=== PATIENT | male | born 1960 | race Caucasian/White ===

== ENCOUNTER 2020-04-09 10:10 | Outpatient (CLI) | payer MEDICAID, SELFPAY ==
--- NOTE | 2020-04-09 10:16 | MR_ITS ---
WS: [id number] MRI RIGHT SHOULDER NONCONTRAST TECHNIQUE: Sagittal T2, coronal T1, T2 and proton density imaging. Axial gradient PDE imaging. CLINICAL INFORMATION: SHOULDER WEAKNESS, RIGHT COMPARISON: None. FINDINGS: Prior extensive postoperative changes involving the rotator cuff with rotator cuff anchors. This degr ades images due to susceptibility artifact. AC joint appears normal. Narrowing of the subacromial spa ce. Chronic narrowing and thinning of the rotator cuff. Prior surgical repair of the supraspinatus wh ich appears foreshortened and atrophic. Infraspinatus appears intact and also previously repaired. Normal visualized teres minor. Subscapular is tendon appears atrophic with a small remnant. Biceps tendon is not visualized in the bicipital андрей ove due to artifact. Degenerative fraying of the glenoid labrum. Normal bone marrow signal involving the coracoid and glenoid labrum. MR/MR shoulder RT wo con* [id number] IMPRESSION: 1. Limited examination due to extensive beam hardening artifact from prior rot ator cuff repair. 2. Evidence of prior supraspinatus and infraspinatus repair. 3. Marked atrophy and thinning of the previously repaired supraspinatus. No de finite evidence of new tear. 4. Supraspinatus is present repaired and Appears intact. 5. Normal teres minor. 6. Tiny amount of residual subscapularis tendon visualized. 7. Biceps tendon is not visualized in the bicipital groove likely chronically torn. 8. Marked chronic narrowing of the subacromial space.
== END 2020-04-09 10:11 | disposition home or self-care (01) ==
LOC: RADWPI 10:15
PROVIDERS: Family Provider Nurse Practitioner Family; PCP Nurse Practitioner Family; Visit Provider Nurse Practitioner Family
DX: M25.511 Pain in right shoulder (principal); M62.81 Muscle weakness (generalized)
CPT/HCPCS: 73221

== ENCOUNTER 2021-09-23 11:21 | Outpatient (CLI) | payer MEDICAID, SELFPAY ==
[2021-09-23 12:46] LABS: Basophils # 0.1 10^3/uL (0.0-0.1); Basophils % 0.6 %; Eosinophils # 0.3 10^3/uL (0.0-0.8); Eosinophils % 3.3 %; Hematocrit 33.1 % (42.0-52.0); Hemoglobin 10.9 g/dL (11.7-16.6); Lymphocytes # 2.3 10^3/uL (0.8-4.8); Lymphocytes % 23.8 %; Mean Corpuscular HGB Conc 32.9 g/dL (30.0-36.0); Mean Corpuscular Hemoglobin 21.3 pg (28.0-34.0); Mean Corpuscular Volume 64.8 fl (80-94); Monocytes # 1.1 10^3/uL (0.2-0.9); Neutrophils # 5.98 10^3/uL (1.8-7.7); Nucleated Red Blood Cells % 0 %; Platelet Count 290 10^3/cmm (130-400); Red Blood Count 5.11 10^6/uL (4.1-5.3); Red Cell Distribution Width 16.3 % (12.1-15.1); Reticulocyte % 1.6 % (0.5-2.0); White Blood Count 9.8 10^3/uL (4.0-10.0)
[2021-09-23 13:00] LABS: Ferritin 190 ng/mL (30-400); Iron 90 ug/dL (59-158); Lactate Dehydrogenase 201 U/L (135-225); Percent Saturation 30.8 % (20-50); Total Bilirubin 1.6 mg/dL (0.15-1.2); Total Iron Binding Capacity 292 mcg/dl; Unsaturated Iron Binding 202 ug/dL (112-347)
[2021-09-23 13:09] LABS: LAB Peripheral Smear Sent for Review
--- NOTE | 2021-09-23 17:51 | ONC CON_ITS ---
Dr. Mar New Patient Note Patient: Gerardo Jamil Unit #: [id number]: 1960 Dicatated By: Crow Mar M.D.Date of Visit: Sep 23, 2021 Onc MED New Patient/Consult Referring Physician: Mona Ball Chief Complaint: Thalassemia trait. History of Present Illness: This is a 60-year-old man with suspected thalassemia trait. He has a history of hepatitis C associated with previous substance abuse. It has been treated. He has some chronic anxiety and depression. I am asked to see him in regard to thalassemia trait. He indicates that he was first told that he had it sometime during adolescence. He was seen for a follow-up visit at the [facility] on 08/08/2021. His laboratory studies at that time included CBC which showed normal hemoglobin at 13.5 g with hematocrit 44.1%. He red blood cell count was elevated at 6,640,000. The red cell indices were hypochromic/microcytic with MCV 66 and MCH 20. The white blood cell count was 8100 and the platelet count was 348,000. Comprehensive metabolic profile showed normal renal function with BUN 15 and creatinine 0.80 mg/dL. Bilirubin was borderline high at 1.2 mg/dL, but with normal liver enzymes. His B12 level was normal at 533 pg/mL and the folate level was normal at 8.1 ng/mL. TSH was normal at 2.820 ???IU/mL. He complains that he feels really fatigued. 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 ECOG score is 1. His appetite cycles and his weight fluctuates. He does not have fever or night sweats. He sometimes feels chilled. He reports having sinus congestion and dry mouth and throat. He does not complain of cough. He sometimes has shortness of breath. He sometimes has muscle spasms in the chest area. He has indigestion a lot. He has no other GI complaints. Reports having urinary frequency and nocturia. He has pain in the right shoulder area and he has chronic back pain. He also has soreness in his hands and in his ankles and feet. He has constant paresthesias/burning sensation in his legs. He has anxiety attacks and depression. Past Medical History: Mr. Denton medical history consists of anxiety, depression, history of substance abuse, and history of treated hepatitis C. Past Surgical History: Mr. Denton surgical/procedural history consists of appendectomy, bilateral rotator cuff repair, cholecystectomy, repair of torn bicep, and tonsillectomy. Medications: DULoxetine HCl 30 mg (of 30 mg) Capsule Delayed Release Particles Oral b.i.d. Allergies: No Known Allergies. Social History: Mr. Jamil is . He has never smoked cigarettes, but he has been smoking marijuana since age 12. He was incarcerated for 26 years, having been released in 1998. He had substance abuse, including IV drug use while he was in residential. Family History: Father is still living in his 70s. Mother had lupus and MS. According to the patient, she from a reaction to a surgical anesthetic. He has 2 half-brothers with his mother and 2 half-sisters with his father. He has no children. He is not certain if anyone else in the family has the thalassemia trait or anemia. He is also uncertain of his ethnic ancestry. 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 His appetite cycles and his weight fluctuates. He does not have fever or night sweats. He sometimes feels chilled. ECOG score is 1, Eyes - His vision is a little bit worse, ENMT - No hearing loss or tinnitus. He has sinus congestion. He has dry mouth and throat. No difficulty swallowing, Hematologic/Lymphatic - No abnormal bruising or bleeding, Respiratory - He has some shortness of breath. He does not complain of cough. No pleuritic pain or hemoptysis, Cardiovascular - He sometimes has muscle spasms in the chest or abdominal area. He has no angina pain. No palpitations, Gastrointestinal - No nausea or vomiting. He has indigestion a lot. No diarrhea or constipation. No blood in the stool or black stools, Genitourinary (M) - No dysuria or hematuria. He has urinary frequency and nocturia. No urgency or incontinence, Musculoskeletal - He has pain in the right shoulder area and he has low back pain. He also has soreness in his hands and his ankles and feet, Integumentary - No skin rash or other skin changes, Neurologic - No headache. He sometimes has dizziness. He has constant paresthesia/burning sensation in his legs, Psychiatric - He has anxiety and depression. He has difficulty sleeping. Vital Signs: Performed on Sep 23, 2021 11:42: 8, 4, 0.00, 0.00 sq.m, 98 %, 94 /min, 18 /min, 146/81 mm(hg) (HIGH), 98.2 F (LOW), and 203.6 lbs (HIGH). Physical Examination: Constitutional - He appears chronically ill, Eyes - Sclerae nonicteric. Conjunctivae clear, ENMT - No lesions noted in the oral cavity, Neck - No mass or thyromegaly, Hematologic/Lymphatic - No cervical, clavicular, or axillary adenopathy, Respiratory - Lungs sound clear with good air movement bilaterally, Cardiovascular - Heart rhythm is regular. There is no murmur, gallop, or rub noted, Abdomen - Soft and non-tender. Liver and spleen are not enlarged. There is no abdominal mass or ascites noted and there is no inguinal adenopathy, Back/Spine - No spine or CVA tenderness noted, Extremities - No edema. Pedal pulses are palpable bilaterally, Integumentary - No rashes. No suspicious skin lesions noted, Neurologic - No focal neurologic deficits noted. Lab/Imaging: His CBC shows hemoglobin 10.9 g with hematocrit 33.1%. The red blood cell count is 5,110,000. The red cell indices are hypochromic/microcytic with MCV 64 and MCH 21. White blood cell count is 9800 and platelet count is 290,000. The uncorrected reticulocyte count is 1.6%. The total bilirubin is 1.6 mg/dL with direct bilirubin 0.30 mg/dL and calculated indirect bilirubin 1.30 mg/dL. LDH is normal at 201 U/L. The serum iron studies show transferrin saturation 30.8% and the ferritin is normal at 190 ng/mL. The blood smear shows hypochromia and RBC microcytosis, as expected. There are numerous target cells and there is rare basophilic stippling. Problem List: 1. Patient with CBC findings which are consistent with thalassemia trait, presumably beta thalassemia trait. He is not anemic. 2. Treated hepatitis C. 3. History of substance abuse. 4. Anxiety and depression. Problems Addressed with this Encounter and Plan: Patient with CBC findings which are consistent with thalassemia trait, presumably beta thalassemia trait. His current laboratory studies do show mild anemia, which is expected. His serum iron studies show normal transferrin saturation and his ferritin level also is normal. In addition, he does not appear to be hemolyzing. As such, it is uncertain to what extent this may be contributing to his fatigue, but with just mild anemia there is no treatment indicated, and at this point I do not feel that any further evaluation is indicated. I can see him again as needed if there is significant worsening of the anemia. Signed By: Crow Mar M.D. <<Signature on File>>
== END 2021-09-23 11:22 | disposition home or self-care (01) ==
LOC: ONCMED 11:24
PROVIDERS: PCP Nurse Practitioner Family; Visit Provider Internal Medicine Medical Oncology
DX: D56.3 Thalassemia minor (principal); F41.9 Anxiety disorder, unspecified; F32.9 Major depressive disorder, single episode, unspecified; F19.11 Other psychoactive substance abuse, in remission; Z86.19 Personal history of other infectious and parasitic diseases; Z79.899 Other long term (current) drug therapy
CPT/HCPCS: 36415; 82247; 82248; 82728; 83540; 83550; 83615; 85025; 85045; 99204

== ENCOUNTER 2023-05-21 16:19 | Emergency (ER) | payer MEDICAID, SELFPAY ==
[2023-05-21 16:22] VITALS: BP 161/90; PULSE 97; RESP 17; TEMP 36.4; O2SAT 98; BMI 29.0
--- NOTE | 2023-05-21 16:34 | CTR_ITS ---
PROCEDURE INFORMATION: Exam: CT Head Without Contrast Exam date and time: 05/21/2023 5:23 PM Age: 62 years old Clinical indication: Injury or trauma; Fall; Blunt trauma (contusions or hematomas); Without loss of consciousness TECHNIQUE: Imaging protocol: Computed tomography of the head without contrast. Radiation optimization: All CT scans at this facility use at least one of these dose optimization techniques: automated exposure control; mA and/or kV adjustment per patient size (includes targeted exams where dose is matched to clinical indication); or iterative reconstruction. REPORTING DATA: Count of CT and Cardiac NM exams in prior 12 months: This patient has received 0 known CTs and 0 known cardiac nuclear medicine studies in the 12 months prior to the current study. COMPARISON: No relevant prior studies available. RADIATION DOSE METRICS: Total DLP (mGy-cm): 1137.8 FINDINGS: Brain: No hemorrhage. No edema. Mild diffuse cerebral atrophy. No significant white matter disease. No mass effect. Cerebral ventricles: No ventriculomegaly. Paranasal sinuses: Visualized sinuses are unremarkable. No fluid levels. Mastoid air cells: Visualized mastoid air cells are well aerated. Bones/joints: Unremarkable. No acute fracture. Soft tissues: Unremarkable. CT/CT head wo con* [id number] IMPRESSION: No acute intracranial abnormality.
--- NOTE | 2023-05-21 16:34 | CTR_ITS ---
PROCEDURE INFORMATION: Exam: CT Cervical Spine Without Contrast Exam date and time: 05/21/2023 5:23 PM Age: 62 years old Clinical indication: Injury or trauma; Fall; Blunt trauma TECHNIQUE: Imaging protocol: Computed tomography of the cervical spine without contrast. Radiation optimization: All CT scans at this facility use at least one of these dose optimization techniques: automated exposure control; mA and/or kV adjustment per patient size (includes targeted exams where dose is matched to clinical indication); or iterative reconstruction. REPORTING DATA: Count of CT and Cardiac NM exams in prior 12 months: This patient has received 0 known CTs and 0 known cardiac nuclear medicine studies in the 12 months prior to the current study. COMPARISON: MR shoulder RT wo con* [id number] 04/09/2020 11:01 AM RADIATION DOSE METRICS: Total DLP (mGy-cm): 1675.43 FINDINGS: Bones/joints: Osseous ankylosis of the left atlanto occipital joint space. No acute fracture. Normal alignment. No severe spinal canal stenosis. Lungs: Lung apices are normal. Soft tissues: Unremarkable. CT/CT cervical spin wo con* [id number] IMPRESSION: No acute findings.
--- NOTE | 2023-05-21 16:56 | W.ED.FALL ---
HPI - Fall General: Chief Complaint: Fall Stated Complaint: fell / hit head Time Seen by Provider: 05/21/23 16:25 Source: patient Mode of arrival: ambulatory Limitations: no limitations History of Present Illness: 62-year-old male states that he tripped and fell a couple hours ago states he hit his head he does have a superficial laceration to the top of his head states he also has neck pain. Patient states the pain is 4 out of 10 he did have a loss of consciousness patient ambulated in here. Denies any other injuries Associated symptoms-after fall: Reports headache(s) and neck pain; Denies abdominal pain or chest pain Review of Systems Const: Denies: fever(s) or chills Eyes: Denies: blurry vision or eye discomfort ENMT: Denies: throat pain or dental pain Card: Denies: chest pain Resp: Denies: dyspnea GI: Denies: abdominal pain, nausea, vomiting or diarrhea Musc: Reports: neck pain; Denies: back pain Skin/Breast: Denies: rash Neuro: Reports: headache(s) Physical Exam Const: COMMON NORMALS: no acute distress, patient oriented x3 and healthy appearing HENMT: COMMON NORMALS: normocephalic; head/scalp not atraumatic (2 cm superficial laceration to crown of the head) HEAD & SCALP: normocephalic; not atraumatic (2 cm superficial laceration to crown of the head) Eye: COMMON NORMALS: Equal, round and reactive pupils present PUPIL: Yes Equal, round and reactive pupils present Neck/C-Spine: OTHER: In c-collar complaining of pain Chest: COMMONS NORMALS: normal inspection of the chest and normal palpation of entire chest wall Resp: COMMON NORMALS: normal respiratory effort, No retractions, No use of accessory muscles and clear to auscultation bilaterally AUSCULTATION: clear to auscultation bilaterally Cardio: COMMON NORMALS: regular rate, regular rhythm and No murmurs present (Cardio) RATE: regular rate RHYTHM: regular rhythm GI: COMMON NORMALS: Normal to inspection, nondistended, normoactive bowel sounds present, Soft to palpation, non-tender and no masses PALPATION: Yes Soft to palpation Extremity: COMMON NORMALS: normal to inspection and full ROM Neuro: COMMON NORMALS: patient oriented x3, moves all extremities and no focal motor deficits Psych: COMMON NORMALS: mental status grossly normal, Normal thought process present and cooperative THOUGHT PROCESS: Normal thought process present Skin: COMMON NORMALS: no rashes or lesions noted and no wounds GENERAL SKIN EXAM: no rashes or lesions noted Procedures Laceration Laceration 1: Site: scalp Size (cm): 2 Description: linear Depth: simple, single layer Pre-repair: irrigated extensively Size (cm): other (dermabond) Course Vital Signs: Vital signs: Vital Signs Temperature 97.5 F L 05/21/23 16:22 Pulse Rate 90 05/21/23 18:05 Respiratory Rate 17 05/21/23 16:22 Blood Pressure 137/82 05/21/23 18:05 Pulse Oximetry 99 05/21/23 18:05 Oxygen Delivery Me thod Room Air 05/21/23 18:05 MDM - Fall Medical Decision Making Patient presents with a head laceration head CT C-spine are negative he is otherwise well-appearing here did Dermabond the laceration as it was superficial nature. Medical Records I reviewed the patient's medical records. Lab Data I reviewed the patient's lab results. Radiology Impressions Cervical Spine CT 05/21/23 16:34 IMPRESSION: No acute findings. Head CT 05/21/23 16:34 IMPRESSION: No acute intracranial abnormality. Discharge Plan Discharge Patient Disposition: Home Clinical Impression: Head injury, Fall, Laceration Condition: Stable Prescriptions: No Action hydroxyzine HCl 25 mg tablet 25 mg PO TID PRN bupropion HCl 100 mg tablet 100 mg PO BID trazodone 50 mg tablet 25 mg PO DAILY Discharge Orders: Discharge ED (Routine); Ordered 05/21/23 Ordered By: Candace Bullock Referrals: Anny Gardner FNP [Primary Care Provider] - 1-3 days Discharge Diet: Advance as tolerated Discharge Activity: Resume usual activity Patient Instructions: Laceration (ED), Head Injury (ED) Coding Level of Care Code ED Residential [employer] for [employer]
[2023-05-21 18:05] VITALS: BP 137/82; PULSE 90; O2SAT 99
== END 2023-05-21 18:13 | disposition home or self-care (01) ==
PROVIDERS: Emergency Provider Emergency Medicine; PCP Nurse Practitioner Family
DX: S01.01XA Laceration without foreign body of scalp, initial encounter (principal); W01.0XXA Fall on same level from slipping, tripping and stumbling without subsequent striking against object, initial encounter; S09.90XA Unspecified injury of head, initial encounter
CPT/HCPCS: 12001; 70450; 72125; 99284

== ENCOUNTER 2023-08-19 08:45 | Emergency (ER) | payer MEDICAID, SELFPAY ==
[2023-08-19 08:46] VITALS: BP 157/97; PULSE 78; TEMP 36.4; O2SAT 100; BMI 28.7
--- NOTE | 2023-08-19 08:46 | XRR_ITS ---
PROCEDURE INFORMATION: Exam: XR Chest Exam date and time: 08/19/2023 8:58 AM Age: 62 years old Clinical indication: Cough and dyspnea; Additional info: Dyspnea/cough TECHNIQUE: Imaging protocol: Radiologic exam of the chest. Views: 1 view. COMPARISON: CT cervical spin wo con* [id number] 05/21/2023 5:23 PM FINDINGS: Lungs: There is no consolidation. Pleural spaces: There is no pleural effusion or pneumothorax. Heart/Mediastinum: Cardiomediastinal contours are unremarkable. Bones/joints: There is moderate degenerative disease at both shoulders. XR/XR chest 1V portable [id number] IMPRESSION: No acute findings.
--- NOTE | 2023-08-19 08:46 | ECG_ITS ---
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 Measurements Intervals [place] Rate: 84 P: 55 DE: 159 QRS: 60 QRSD: 88 T: 76 QT: 367 QTc: 436 Interpretive Statements SINUS RHYTHM No previous ECG available for comparison Electronically Signed On 08-19-2023 9:25:27 CDT by Adalid Barajas M.D. [email or web address]
--- NOTE | 2023-08-19 08:48 | W.ED.GENADLT ---
HPI - General Adult General: Chief complaint: Abdominal Pain Stated complaint: sob, n/v/d Time Seen by Provider: 08/19/23 08:46 Source: patient Mode of arrival: EMS History of Present Illness: 62-year-old male presents emergency room complaining of upper abdominal pain nausea vomiting and diarrhea. He denies any hematochezia melena hematemesis cough cramps denies chest pain or shortness of breath or cough no dysuria urgency or frequency no fever sweats or chills. Patient has mild mildly aggressive vomiting and diarrhea vomited multiple times in the room he had an episode of diarrhea when they are going to take him off the ambulance cot he leaned against the wall and sat on the floor and had an episode of diarrhea and is closing. Patient States he uses medical marijuana a lot Onset (ago): minute(s) Location: abdomen Severity: severe Quality: aching and constant Pain Consistency: constant Relieving factors: none Exacerbating factors: none Associated symptoms: Reports decreased appetite, nausea and vomiting; Deny chest pain, confusion, cough, diaphoresis, dyspnea, fevers/chills, headache(s), malaise, rash, palpitations, seizures, short of breath, syncope or weakness Review of Systems Const: Denies: fever(s), chills, malaise or diaphoresis Card: Denies: chest pain, palpitations or syncope Resp: Denies: dyspnea GI: Reports: abdominal pain, nausea, vomiting and diarrhea : Denies: dysuria, urinary frequency or urinary urgency Musc: Denies: neck pain or back pain Skin/Breast: Denies: rash Neuro: Denies: headache(s) or confusion Physical Exam Const: GENERAL APPEARANCE: cooperative and comfortable ORIENTATION/CONSCIOUSNESS: Yes awake, Yes oriented to person, Yes oriented to place and Yes oriented to time HENMT: COMMON NORMALS: normocephalic, atraumatic and hearing grossly normal bilaterally HEAD & SCALP: normocephalic and atraumatic Resp: COMMON NORMALS: normal respiratory effort, No retractions, No use of accessory muscles and clear to auscultation bilaterally AUSCULTATION: clear to auscultation bilaterally Cardio: COMMON NORMALS: regular rate, regular rhythm and No murmurs present (Cardio) RATE: regular rate RHYTHM: regular rhythm GI: COMMON NORMALS: No hepatosplenomegaly present AUSCULTATION: Yes normoactive bowel sounds PALPATION: Yes Tenderness to palpation present (GI) (Diffuse), No Guarding due to palpation present (GI) and Yes No hepatosplenomegaly present Extremity: COMMON NORMALS: normal to inspection, capillary refill normal, no clubbing, cyanosis or edema, no calf tenderness and no pedal edema Neuro: SENSORIUM/ORIENTATION: Yes oriented to person, Yes oriented to place and Yes oriented to time Skin: COMMON NORMALS: no rashes or lesions noted GENERAL SKIN EXAM: no rashes or lesions noted Course Vital Signs: Vital signs: Vital Signs Temperature 97.6 F 08/19/23 08:46 Pulse Rate 78 08/19/23 08:46 Blood Pressure 157/97 08/19/23 08:46 Pulse Oximetry 100 08/19/23 08:46 Oxygen Delivery Me thod Nasal Cannula 08/19/23 08:46 Oxygen Flow Rate 3 08/19/23 08:46 MDM - General Adult Medical Decision Making Patient improved after Ativan and Haldol. CT of the abdomen negative. Hemoglobin normal repeat abdominal exam is benign. Vital signs stable he did require some oxygenation after receiving Ativan and Haldol and he was sleeping supine he would desat a little bit when he woke up it would resolve immediately. We will discharge patient home discharge home ondansetron to use as needed follow-up with primary care as needed encouraged to decrease or abstain from the use of marijuana products Medical Records I reviewed the patient's medical records. Lab Data I reviewed the patient's lab results. 08/19/23 08:58 08/19/23 08:58 Radiology Impressions Chest X-Ray 08/19/23 08:46 IMPRESSION: No acute findings. Laboratory Results WBC 12.03 10^3/uL (3.29-11.43) H 08/19/23 08:58 RBC 7.32 10^6/uL (3.85-5.65) H 08/19/23 08:58 Hgb 15.00 g/dL (11.27-16.99) 08/19/23 08:58 Hct 46.8 % (37-53) 08/19/23 08:58 MCV 63.9 fl (82-101) L 08/19/23 08:58 MCH 20.5 pg (27-33) L 08/19/23 08:58 MCHC 32.1 g/dL (30-55) 08/19/23 08:58 RDW 17.7 % (12.1-15.1) H 08/19/23 08:58 Plt Count 416 10^3/cmm (157-399) H 08/19/23 08:58 MPV 9.0 fL (7.4-10.4) 08/19/23 08:58 Neut % (Auto) 75.0 % 08/19/23 08:58 Lymph % (Auto) 14.3 % 08/19/23 08:58 [place] % (Auto) 7.5 % 08/19/23 08:58 Eos % (Auto) 2.5 % 08/19/23 08:58 Baso % (Auto) 0.3 % 08/19/23 08:58 Neut # (Auto) 9.02 10^3/uL (1.8-7.7) H 08/19/23 08:58 Lymph # (Auto) 1.7 10^3/uL (0.8-4.8) 08/19/23 08:58 [place] # (Auto) 0.9 10^3/uL (0.2-0.9) 08/19/23 08:58 Eos # (Auto) 0.3 10^3/uL (0.0-0.8) 08/19/23 08:58 Baso # (Auto) 0.0 10^3/uL (0.0-0.1) 08/19/23 08:58 Nucleated RBC % (auto) 0 % 08/19/23 08:58 Nucleated RBCs # 0.0 /100WBC 08/19/23 08:58 Sodium 134 mmol/L (136-145) L 08/19/23 08:58 Potassium 4.1 mmol/L (3.5-5.1) 08/19/23 08:58 Chloride 98 mmol/L (98-107) 08/19/23 08:58 Carbon Dioxide 22 mmol/L (22-29) 08/19/23 08:58 Anion Gap 18.1 (5-19) 08/19/23 08:58 BUN 23 mg/dL (8-23) 08/19/23 08:58 Creatinine 0.9 mg/dL (0.7-1.2) 08/19/23 08:58 GFR Calculation 85.2 mL/min (90-130) L 08/19/23 08:58 Glucose 107 mg/dL (65-115) 08/19/23 08:58 Calculated Osmolality 282 mOsm/kg (285-295) L 08/19/23 08:58 Calcium 10.5 mg/dL (8.5-10.5) 08/19/23 08:58 Total Bilirubin 1.4 mg/dL (0.15-1.2) H 08/19/23 08:58 AST 25 U/L (0-40) 08/19/23 08:58 ALT 25 U/L (0-41) 08/19/23 08:58 Alkaline Phosphatase 119 U/L (40-130) 08/19/23 08:58 Total Protein 8.5 g/dL (6.6-8.7) 08/19/23 08:58 Albumin 4.7 g/dL (3.5-5.2) 08/19/23 08:58 Globulin 3.8 g/dL (1.3-4.6) 08/19/23 08:58 Lipase 30 U/L (13-60) 08/19/23 08:58 Urine Color Yellow (Yellow) 08/19/23 11:50 Urine Appearance Clear (CLEAR) 08/19/23 11:50 Urine pH 5 (5-7) 08/19/23 11:50 Ur Specific [place] 1.010 (1.005-1.030) 08/19/23 11:50 Urine Protein Neg (Negative) 08/19/23 11:50 Urine Glucose (UA) Norm (Normal) 08/19/23 11:50 Urine Ketones Negative (Negative) 08/19/23 11:50 Urine Blood Neg (Negative) 08/19/23 11:50 Urine Nitrate Negative (Negative) 08/19/23 11:50 Urine Bilirubin Neg (Negative) 08/19/23 11:50 Urine Urobilinogen Norm mg/dL (Negative) 08/19/23 11:50 Ur Leukocyte Esterase Negative (Negative) 08/19/23 11:50 Ethyl Alcohol < 10 mg/dL (0-10) 08/19/23 08:58 All radiology interpretation(s) finalized by discharge Discharge Plan Discharge Patient Disposition: Home Clinical Impression: Cannabinoid hyperemesis syndrome Condition: Stable Prescriptions: New ondansetron HCl 4 mg tablet 4 mg PO Q6H PRN (Reason: nausea and vomiting) Qty: 20 0RF Discharge Orders: Discharge ED (Routine); Ordered 08/19/23 Ordered By: Ravi Willams Referrals: Anny Gardner FNP [Primary Care Provider] - Discharge Diet: Clear Liquid Discharge Activity: Increase activity as tolerated Patient Instructions: Opioid Safety, Pain Management Activity Restrictions/Additional Instructions: Thank you for choosing [facility] for your healthcare needs today. Please realize this is an emergency room and that we are providing you with a medical screening exam and this may not be complete and all inclusive of all the testing and or work up that you may need to determine your ailment or severity of your illness. It is very important that you follow up as instructed or that you return to the Emergency Department should you have concerns or if your condition changes or worsens in any way. You are seen today for persistent nausea and vomiting. CT of your abdomen was unremarkable with exception of what appears to be some mild gastric paretic type changes (retained fluid in the stomach. Suspect this is caused by chronic use of marijuana products. You can use the ondansetron as needed. Recommend significantly decreasing or abstaining from the use of marijuana follow-up with your primary care doctor as needed return if you have further problems. 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
[2023-08-19 09:06] LABS: Basophils % 0.3 %; Eosinophils # 0.3 10^3/uL (0.0-0.8); Eosinophils % 2.5 %; Hematocrit 46.8 % (37-53); Lymphocytes # 1.7 10^3/uL (0.8-4.8); Lymphocytes % 14.3 %; Mean Corpuscular HGB Conc 32.1 g/dL (30-55); Mean Corpuscular Hemoglobin 20.5 pg (27-33); Mean Corpuscular Volume 63.9 fl (82-101); Monocytes # 0.9 10^3/uL (0.2-0.9); Monocytes % 7.5 %; Neutrophils # 9.02 10^3/uL (1.8-7.7); Nucleated Red Blood Cells % 0 %; Platelet Count 416 10^3/cmm (157-399); Red Blood Count 7.32 10^6/uL (3.85-5.65); Red Cell Distribution Width 17.7 % (12.1-15.1); White Blood Count 12.03 10^3/uL (3.29-11.43)
[2023-08-19] MEDS: sodium chloride 0.9% 1,000 ML 999 ML IV (09:20)
[2023-08-19] MEDS: ondansetron 2 mg/ML SDV 2 mL 4 MG IVP (09:20)
[2023-08-19 09:25] LABS: Alanine Aminotransferase 25 U/L (0-41); Albumin Level 4.7 g/dL (3.5-5.2); Alcohol Level < 10 mg/dL (0-10); Alkaline Phosphatase 119 U/L (40-130); Aspartate Amino Transferase 25 U/L (0-40); Blood Urea Nitrogen 23 mg/dL (8-23); Calcium 10.5 mg/dL (8.5-10.5); Carbon Dioxide 22 mmol/L (22-29); Chloride 98 mmol/L (98-107); Globulin 3.8 g/dL (1.3-4.6); Glomerular Filtration Rate 85.2 mL/min (90-130); Glucose 107 mg/dL (65-115); Lipase 30 U/L (13-60); Osmolality Calculated 282 mOsm/kg (285-295); Sodium 134 mmol/L (136-145); Total Bilirubin 1.4 mg/dL (0.15-1.2); Total Protein 8.5 g/dL (6.6-8.7)
[2023-08-19 09:26] LABS: Anion Gap 18.1 (5-19); Potassium 4.1 mmol/L (3.5-5.1)
--- NOTE | 2023-08-19 09:32 | CT_ITS ---
WS: [id number] CT ABDOMEN PELVIS TECHNIQUE: Noncontrast CT of the abdomen and pelvis with coronal and sagittal reformatted images. CLINICAL INFORMATION: Abdominal pain COMPARISON: None. DLP: 727.[address] scans at [facility] use at least one of these dose optimization techniques: automated e xposure control; mA and/or kV adjustment per patient size (includes targeted exams where dose is matc hed to clinical indication); or iterative reconstruction. FINDINGS: Normal noncontrast liver. Prior cholecystectomy. Noncontrast spleen is normal. Normal GE junction. Sl ight bibasilar atelectasis. Noncontrast pancreas is normal. Normal adrenal glands. Normal caliber abdominal aorta. No hydronephrosis in either kidney. Sigmoid diverticulosis. No eviden ce of acute diverticulitis. Distended stomach with air-fluid level. No high-grade obstruction. Scatte red air and fluid in normal caliber small bowel. Chronic anterior wedging in the lower thoracic spine Grade 1 anterolisthesis L4 on L5. Moderate central canal stenosis L4-5. IMPRESSION: 1. No acute findings in the abdomen or pelvis. 2. Prior cholecystectomy. 3. Air-fluid level in the stomach with mild distention. 4. Scattered air and fluid in normal caliber small bowel. No evidence of high-grade obstruction. 5. Sigmoid diverticulosis. No evidence of acute radiculitis.
[2023-08-19] MEDS: LORazepam 2 mg/mL INJ 1 mL IVP (09:42)
[2023-08-19] MEDS: haloperidol inj 5 mg/mL INJ 1 mL 2.5 MG IVP (09:42)
[2023-08-19 12:00] LABS: Add Urine Microscopic? NO; Charge for UA Resulting for Rev
[2023-08-19 12:08] LABS: Bilirubin Urine Neg (Negative); Blood Urine Neg (Negative); Glucose Urine UA Norm (Normal); Ketones Urine Negative (Negative); Leukocyte Esterase Urine Negative (Negative); Nitrate Urine Negative (Negative); Protein Urine Neg (Negative); Urine Appearance Clear (CLEAR); Urine Color Yellow (Yellow); Urobilinogen Urine Norm (Negative); pH Urine 5 (5-7)
== END 2023-08-19 13:08 | disposition home or self-care (01) ==
PROVIDERS: Emergency Provider Family Medicine; PCP Nurse Practitioner Family
DX: R11.2 Nausea with vomiting, unspecified (principal); F12.90 Cannabis use, unspecified, uncomplicated
CPT/HCPCS: 71045; 74176; 80053; 80307; 81003; 83690; 85025; 93005; 96361; 96374; 96375; 99285; J1630; J2060; J2405; J7030

== ENCOUNTER 2025-04-09 11:16 | Emergency (ER) | payer MEDICAID, SELFPAY ==
[2025-04-09 11:22] VITALS: BP 155/101; PULSE 87; RESP 20; TEMP 36.3; O2SAT 98; BMI 24.7
--- NOTE | 2025-04-09 11:40 | ED.C_ITS ---
HPI - Psych 2 General: Chief Complaint: Psychiatric Symptoms Stated Complaint: mhe Time Seen by Provider: 04/09/25 11:31 Source: patient Mode of arrival: ambulatory Limitations: no limitations History of Present Illness: 64-year-old male who has a history of de pression states he supposed be on meds but is not currently on them states that he feels like he is at his wits end states that he feels like if he does not get any help that he is going to kill himself or harm someone he states he has been having suicidal thoughts denies any specific plans denies any worse improving factors Associated symptoms: Reports depression and suicidal ideation Related Data Previous Rx's ?Medication ?Instructions ?Recorded ondansetron HCl 4 mg tablet 4 mg PO Q6H PRN nausea and 08/19/23 vomiting #20 tabs Allergies Allergy/AdvReac Type Severity Reaction Status Date / Time codeine AdvReac ADR-Gastrointestinal Verified 04/09/25 11:27 Upset Review of Systems 2 Const: Denies: fever(s), chills, body aches or change in appetite ENMT: Denies: throat pain or dental pain Card: Denies: chest pain Resp: Denies: dyspnea GI: Denies: abdominal pain, nausea, vomiting or diarrhea : Denies: dysuria Musc: Denies: neck pain or back pain Skin/Breast: Denies: rash Neuro: Denies: headache(s) Psych: Reports: depression and suicidal ideation Physical Exam 2 Const: COMMON NORMALS: no acute distress, patient oriented x3 and healthy appearing HENMT: COMMON NORMALS: normocephalic and atraumatic HEAD & SCALP: n ormocephalic and atraumatic Eye: COMMON NORMALS: conjunctivae normal CONJUNCTIVA: Yes conjunctivae normal Neck/C-Spine: COMMON NORMALS: full ROM and supple Chest: COMMONS NORMALS: normal inspection of the chest Resp: COMMON NORMALS: normal respiratory effort Cardio: COMMON NORMALS: regular rate, regular rhythm and No murmurs present (Cardio) RATE: regular rate RHYTHM: regular rhythm Extremity: COMMON NORMALS: normal to inspection and full ROM Neuro: COMMON NORMALS: patient oriented x3, moves all extremities and no focal motor deficits Psych: COMMON NORMALS: mental status grossly normal, Normal thought process present and cooperative MOOD & AFFECT: Yes depressed mood THOUGHT PROCESS: Normal thought process present THOUGHT CONTENT: Yes Suicidality present Skin: COMMON NORMALS: no rashes or lesions noted and no wounds GENERAL SKIN EXAM: no rashes or lesions noted Course 2 Vital Signs: Vital signs: Vital Signs Temperature 97.4 F L 04/09/25 11:22 Pulse Rate 78 04/09/25 16:03 Respiratory Rate 20 H 04/09/25 11:22 Blood Pressure 155/101 04/09/25 11:22 Pulse Oximetry 100 04/09/25 16:03 Oxygen Delivery Me thod Room Air 04/09/25 16:03 [facility] - Psych Medical Decision Making Patient presents here with suicidal ideations he is placed on a 96-hour hold will transfer to [place] for higher level care of geriatric psych. Medical Records I reviewed the patient's medical records. Lab Data I reviewed the patient's lab results. 04/09/25 12:26 04/09/25 12:26 Radiology Impressions Chest X-Ray 04/09/25 16:02 IMPRESSION: Minimal atelectasis at the left lung base. Laboratory Results WBC 8.30 10^3/uL (3.29-11.43) 04/09/25 12:26 RBC 6.40 10^6/uL (3.85-5.65) H 04/09/25 12:26 Hgb 12.80 g/dL (11.27-16.99) 04/09/25 12:26 Hct 41.8 % (37-53) 04/09/25 12:26 MCV 65.3 fl (82-101) L 04/09/25 12:26 MCH 20.0 pg (27-33) L 04/09/25 12:26 MCHC 30.6 g/dL (30-55) 04/09/25 12:26 RDW 18.1 % (12.1-15.1) H 04/09/25 12:26 Plt Count 366 10^3/cmm (157-399) 04/09/25 12:26 MPV 8.8 fL (7.4-10.4) 04/09/25 12:26 Neut % (Auto) 64.2 % 04/09/25 12:26 Lymph % (Auto) 24.2 % 04/09/25 12:26 [place] % (Auto) 9.2 % 04/09/25 12:26 Eos % (Auto) 1.7 % 04/09/25 12:26 Baso % (Auto) 0.5 % 04/09/25 12: Neut # (Auto) 5.33 10^3/uL (1.8-7.7) 04/09/25 12: Lymph # (Auto) 2.0 10^3/uL (0.8-4.8) 04/09/25 12: [place] # (Auto) 0.8 10^3/uL (0.2-0.9) 04/09/25 12:26 Eos # (Auto) 0.1 10^3/uL (0.0-0.8) 04/09/25 12: Baso # (Auto) 0.0 10^3/uL (0.0-0.1) 04/09/25 12: Nucleated RBC % (auto) 0 % 04/09/25 12: Nucleated RBCs # 0.0 /100WBC 04/09/25 12:26 Sodium 139 mmol/L (136-145) 04/09/25 12: Potassium 4.4 mmol/L (3.5-5.1) 04/09/25 12: Chloride 102 mmol/L (98-107) 04/09/25 12: Carbon Dioxide 23 mmol/L (22-29) 04/09/25 12: Anion Gap 18.4 (5-19) 04/09/25 12:26 BUN 14 mg/dL (8-23) 04/09/25 12: Creatinine 0.9 mg/dL (0.7-1.2) 04/09/25 12:26 GFR Calculation 84.7 mL/min (90-130) L 04/09/25 12:26 Glucose 95 mg/dL (65-115) 04/09/25 12: Calculated Osmolality 288 mOsm/kg (285-295) 04/09/25 12: Calcium 9.9 mg/dL (8.5-10.5) 04/09/25 12: Total Bilirubin 1.6 mg/dL (0.15-1.2) H 04/09/25 12:26 AST 19 U/L (0-40) 04/09/25 12: ALT 15 U/L (0-41) 04/09/25 12:26 Alkaline Phosphatase 115 U/L (40-130) 04/09/25 12:26 Total Protein 8.2 g/dL (6.6-8.7) 04/09/25 12:26 Albumin 4.4 g/dL (3.5-5.2) 04/09/25 12:26 Globulin 3.8 g/dL (1.3-4.6) 04/09/25 12:26 Salicylates < 0.3 mg/dL (3-10) L 04/09/25 12:26 Urine Opiates Screen Negative ng/mL (Negative) 04/09/25 12:01 Acetaminophen < 5.0 ug/mL (10-30) L 04/09/25 12:26 Ur Barbiturates Screen Negative ng/mL (Negative) 04/09/25 12:01 Ur Phencyclidine Scrn Negative ng/mL (Negative) 04/09/25 12:01 Ur Amphetamines Screen Positive ng/mL (Negative) H 04/09/25 12:01 U Benzodiazepines Scrn Negative ng/mL (Negative) 04/09/25 12:01 Urine Cocaine Screen Negative ng/mL (Negative) 04/09/25 12:01 U Marijuana (THC) Screen Positive ng/mL (Negative) H 04/09/25 12:01 Ethyl Alcohol < 10 mg/dL (0-10) 04/09/25 12:26 Influenza A (PCR) Negative (Negative) 04/09/25 13:51 Influenza Type B (PCR) Negative (Negative) 04/09/25 13:51 RSV (PCR) Negative (Negative) 04/09/25 13:51 SARS-CoV-2 (PCR) Negative (Negative) 04/09/25 13:51 All radiology interpretation(s) finalized by discharge EKG Data EKG 1: I personally reviewed and interpreted this EKG as follows: EKG interpretation date: 04/09/25 EKG interpretation time: 13:48 Interpretation: nsr hr [address] elevation qrs89 qtc 393 Discharge Plan Discharge Patient Disposition: Xfer Short-Term Hosp Clinical Impression: Suicidal ideation Condition: Stable Referrals: Anny Gardner FNP [Primary Care Provider, Family Practice] Print Language: Divehi Coding Level of Care Code ED [employer]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
--- NOTE | 2025-04-09 12:37 | PC.NURSE ---
96 hr rights reviewed with pt @[id number] with assistance of [facility] digital marketing officer Kelvin Salas. All education reviewed with pt at this time. No verbalized questions to HS at this time. Pt copy was left with pt. pt provided a sandwich. No further needs.
[2025-04-09 12:50] LABS: Basophils % 0.5 %; Eosinophils # 0.1 10^3/uL (0.0-0.8); Eosinophils % 1.7 %; Hematocrit 41.8 % (37-53); Lymphocytes % 24.2 %; Mean Corpuscular HGB Conc 30.6 g/dL (30-55); Mean Corpuscular Volume 65.3 fl (82-101); Mean Platelet Volume 8.8 fL (7.4-10.4); Monocytes # 0.8 10^3/uL (0.2-0.9); Monocytes % 9.2 %; Neutrophils # 5.33 10^3/uL (1.8-7.7); Neutrophils % 64.2 %; Nucleated Red Blood Cells % 0 %; Platelet Count 366 10^3/cmm (157-399); Red Cell Distribution Width 18.1 % (12.1-15.1)
[2025-04-09 12:58] LABS: Amphetamines Screen Urine Positive (Negative); Barbiturates Screen Urine Negative (Negative); Benzodiazepines Screen Urine Negative (Negative); Cocaine Screen Urine Negative (Negative); Opiate Screen Urine Negative (Negative); PCP Screen Urine Negative (Negative); THC Screen Urine Positive (Negative)
[2025-04-09 13:18] LABS: Alanine Aminotransferase 15 U/L (0-41); Albumin Level 4.4 g/dL (3.5-5.2); Alkaline Phosphatase 115 U/L (40-130); Anion Gap 18.4 (5-19); Aspartate Amino Transferase 19 U/L (0-40); Blood Urea Nitrogen 14 mg/dL (8-23); Calcium 9.9 mg/dL (8.5-10.5); Carbon Dioxide 23 mmol/L (22-29); Chloride 102 mmol/L (98-107); Creatinine Clr Calc Pharmacy 86.8139; Globulin 3.8 g/dL (1.3-4.6); Glomerular Filtration Rate 84.7 mL/min (90-130); Glucose 95 mg/dL (65-115); Osmolality Calculated 288 mOsm/kg (285-295); Potassium 4.4 mmol/L (3.5-5.1); Sodium 139 mmol/L (136-145); Total Bilirubin 1.6 mg/dL (0.15-1.2); Total Protein 8.2 g/dL (6.6-8.7)
[2025-04-09 13:21] LABS: Acetaminophen < 5.0 ug/mL (10-30); Alcohol Level < 10 mg/dL (0-10); Salicylate < 0.3 mg/dL (3-10)
--- NOTE | 2025-04-09 13:29 | ECG_ITS ---
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 Measurements Intervals [employer] Rate: 72 P: 58 [place]: 176 QRS: 53 QRSD: 89 T: 60 QT: 369 QTc: 404 Interpretive Statements SINUS RHYTHM Compared to ECG 08/19/2023 09:10:09 No significant changes Electronically Signed On 04-10-2025 17:22:06 CDT by Adalid Barajas M.D. [email or web address]
[2025-04-09 15:36] LABS: Influenza A NEGATIVE (Negative); Influenza B NEGATIVE (Negative); Respiratory Syncytial Virus Ce NEGATIVE (Negative); SARS-CoV-2 PCR NEGATIVE (Negative)
--- NOTE | 2025-04-09 16:02 | XRR_ITS ---
PROCEDURE INFORMATION: Exam: XR Chest Exam date and time: 04/09/2025 4:14 PM Age: 64 years old Clinical indication: Cough; Additional info: [facility] TECHNIQUE: Imaging protocol: Radiologic exam of the chest. Views: 1 view. COMPARISON: CR XR chest 1V portable [id number] 08/19/2023 8:58 AM FINDINGS: Lungs: Minimal atelectasis at the left lung base laterally. Pleural spaces: Unremarkable. No pleural effusion. No pneumothorax. Heart/Mediastinum: Unremarkable. No cardiomegaly. Bones/joints: Unremarkable. XR/XR chest 1V portable [id number] IMPRESSION: Minimal atelectasis at the left lung base.
[2025-04-09 16:03] VITALS: PULSE 78; O2SAT 100
== END 2025-04-09 20:04 | disposition short-term general hospital (02) ==
PROVIDERS: Emergency Provider Emergency Medicine; PCP Nurse Practitioner Family
DX: R45.851 Suicidal ideations (principal); Z11.52 Encounter for screening for COVID-19
CPT/HCPCS: 71045; 80053; 80306; 80307; 85025; 87637; 93005; 99285

== ENCOUNTER 2025-05-02 17:46 | Emergency (ER) | payer MEDICAID, SELFPAY ==
[2025-05-02 17:55] VITALS: BP 163/107; RESP 16; TEMP 36.3; O2SAT 100
--- NOTE | 2025-05-02 18:12 | ED.C_ITS ---
HPI - Psych 2 General: Chief Complaint: Psychiatric Symptoms Stated Complaint: SI Time Seen by Provider: 05/02/25 17:48 History of Present Illness: 64-year-old man with a history of depres maxine who presents emergency room by ambulance with suicidal thoughts. No specific plan today . He says he cannot live the way he has been living anymore. He cannot take care of himself or his dog. He says he has medications for depression and has been admitted in the past but he has not been taking them until today. Related Data Previous Rx's ?Medication ?Instructions ?Recorded ondansetron HCl 4 mg tablet 4 mg PO Q6H PRN nausea and 08/19/23 vomiting #20 tabs Allergies Allergy/AdvReac Type Severity Reaction Status Date / Time codeine AdvReac ADR-Gastrointestinal Verified 04/09/25 11:27 Upset Review of Systems 2 Narrative: Constitutional symptoms: Negative except as documented in HPI. Skin symptoms: Negative except as documented in HPI. Eye symptoms: Negative except as documented in HPI. ENMT symptoms: Negative except as documented in HPI. Respiratory symptoms: Negative except as documented in HPI. Cardiovascular symptoms: Negative except as documented in HPI. Gastrointestinal symptoms: Negative except as documented in HPI. Genitourinary symptoms: Negative except as documented in HPI. Musculoskeletal symptoms: Negative except as documented in HPI. Neurologic symptoms: Negative except as documented in HPI. Psychiatric symptoms: Negative except as documented in HPI. Endocrine symptoms: Negative except as documented in HPI. Physical Exam 2 Narrative: EXAM NARRATIVE: General: Alert. no acute distress Skin: Warm, dry Head: Normocephalic, atraumatic. Neck: Supple, trachea midline. Eye: Extraocular movements are intact. Ears, nose, mouth and throat: Oral mucosa moist. Cardiovascular: Regular rate and rhythm, Normal peripheral perfusion. Respiratory: Lungs are clear to auscultation, respirations are non-labored, breath sounds are equal, Symmetrical chest wall expansion. Gastrointestinal: Soft, Nontender, Non distended Musculoskeletal: Normal ROM, no deformity. Neurological: Alert and oriented. No focal neurological deficit observed. Psychiatric: Cooperative, depressed, expresses suicidal ideation. Course 2 Vital Signs: Vital signs: Vital Signs Temperature 97.4 F L 05/02/25 17:55 Respiratory Rate 16 05/02/25 17:55 Blood Pressure 163/107 05/02/25 17:55 Pulse Oximetry 100 07/16/25 17:55 Oxygen Delivery Me thod Room Air 05/02/25 17:55 MDM - Psych Medical Decision Making Medical decision making: Differential diagnosis for a geriatric patient with worsening dementia/behavioral problems including but not limited to and based on the above HPI, review of systems and physical exam: Concerns for infection such as UTI or pneumonia. Alcohol intoxication. Cardiac issues or other medical problems to be ruled out prior to a geriatric/psychiatric admission. Orders placed to evaluate differential diagnosis based on the above differential, HPI and physical exam Lab work, chest X-ray and ekg ordered to evaluate the pathologies and to clear the patient medically prior to transfer EKG: Time 1859. Rate 56. Sinus bradycardia, No ST-T changes, no ectopy, normal OK & QRS intervals, This was reviewed and interpreted by myself the ER physician at 1905. Chest x-ray: No acute process. No infiltrate. No pneumothorax. This was reviewed and interpreted by myself the emergency room physician. I also reviewed the radiology report. Lab Review: Laboratory results were reviewed and interpreted by myself the emergency room physician. - Medically cleared. - EKG shows no ischemic changes. - Blood alcohol level is negative, as well as salicylate and Tylenol. - Drug screen is negative - No signs of infection, urinalysis clear and white count is not elevated - No anemia. - BUN and creatinine are within normal limits. Assessment and plan: Suicidal ideation -Transfer to geriatric neuropsychiatric facility for continued evaluation and treatment. - All lab work was reviewed and interpreted personally by myself, the ER physician - Evaluation and treatment of this problem were appropriate in the emergency setting Lab Data 05/02/25 18:52 05/02/25 18:52 Radiology Impressions Chest X-Ray 05/02/25 19:02 IMPRESSION: Hyperinflated but clear lungs. No other acute cardiopulmonary abnormality. Laboratory Results WBC 7.61 10^3/uL (3.29-11.43) 05/02/25 18:52 RBC 5.60 10^6/uL (3.85-5.65) 05/02/25 18:52 Hgb 11.30 g/dL (11.27-16.99) 05/02/25 18:52 Hct 36.1 % (37-53) L 05/02/25 18:52 MCV 64.5 fl (82-101) L 05/02/25 18:52 MCH 20.2 pg (27-33) L 05/02/25 18:52 MCHC 31.3 g/dL (30-55) 05/02/25 18:52 RDW 18.2 % (12.1-15.1) H 05/02/25 18:52 Plt Count 338 10^3/cmm (157-399) 05/02/25 18:52 MPV 8.8 fL (7.4-10.4) 05/02/25 18:52 Neut % (Auto) 61.2 % 05/02/25 18:52 Lymph % (Auto) 23.1 % 05/02/25 18:52 [place] % (Auto) 7.5 % 05/02/25 18:52 Eos % (Auto) 7.6 % 05/02/25 18:52 Baso % (Auto) 0.5 % 05/02/25 18:52 Neut # (Auto) 4.65 10^3/uL (1.8-7.7) 05/02/25 18:52 Lymph # (Auto) 1.8 10^3/uL (0.8-4.8) 05/02/25 18:52 [place] # (Auto) 0.6 10^3/uL (0.2-0.9) 05/02/25 18:52 Eos # (Auto) 0.6 10^3/uL (0.0-0.8) 05/02/25 18:52 Baso # (Auto) 0.0 10^3/uL (0.0-0.1) 05/02/25 18:52 Nucleated RBC % (auto) 0 % 05/02/25 18:52 Nucleated RBCs # 0.0 /100WBC 05/02/25 18:52 Sodium 139 mmol/L (136-145) 05/02/25 18:52 Potassium 3.4 mmol/L (3.5-5.1) L 05/02/25 18:52 Chloride 103 mmol/L (98-107) 05/02/25 18:52 Carbon Dioxide 22 mmol/L (22-29) 05/02/25 18:52 Anion Gap 17.4 (5-19) 05/02/25 18:52 BUN 14 mg/dL (8-23) 05/02/25 18:52 Creatinine 0.7 mg/dL (0.7-1.2) 05/02/25 18:52 GFR Calculation 113.2 mL/min (90-130) 05/02/25 18:52 Glucose 125 mg/dL (65-115) H 05/02/25 18:52 Calculated Osmolality 290 mOsm/kg (285-295) 05/02/25 18:52 Calcium 9.1 mg/dL (8.5-10.5) 05/02/25 18:52 Total Bilirubin 1.5 mg/dL (0.15-1.2) H 05/02/25 18:52 AST 21 U/L (0-40) 05/02/25 18:52 ALT 16 U/L (0-41) 05/02/25 18:52 Alkaline Phosphatase 93 U/L (40-130) 05/02/25 18:52 Total Protein 7.2 g/dL (6.6-8.7) 05/02/25 18:52 Albumin 3.9 g/dL (3.5-5.2) 05/02/25 18:52 Globulin 3.3 g/dL (1.3-4.6) 05/02/25 18:52 TSH 2.07 uIU/mL (0.27-4.20) 05/02/25 18:52 Urine Color Yellow (Yellow) 05/02/25 18:00 Urine Appearance Clear (CLEAR) 05/02/25 18:00 Urine pH 6.5 (5-7) 05/02/25 18:00 Ur Specific [place] 1.021 (1.005-1.030) 05/02/25 18:00 Urine Protein Trace (Negative) A 05/02/25 18:00 Urine Glucose (UA) Negative (Normal) 05/02/25 18:00 Urine Ketones Trace (Negative) 05/02/25 18:00 Urine Blood Negative (Negative) 05/02/25 18:00 Urine Nitrate Negative (Negative) 05/02/25 18:00 Urine Bilirubin Negative (Negative) 05/02/25 18:00 Urine Urobilinogen 2.0 mg/dL (Negative) H 05/02/25 18:00 Ur Leukocyte Esterase Negative (Negative) 05/02/25 18:00 Urine RBC 0-2 /hpf (0-2) 05/02/25 18:00 Urine WBC 0-5 /hpf (0-5) 05/02/25 18:00 Ur Squamous Epith Cells 0-5 /hpf (0-5) 05/02/25 18:00 Amorphous Sediment Not Reportable 05/02/25 18:00 Urine Bacteria None seen /hpf (NONE) 05/02/25 18:00 Hyaline Casts 2.87 /lpf 05/02/25 18:00 Salicylates < 0.3 mg/dL (3-10) L 05/02/25 18:52 Urine Opiates Screen Negative ng/mL (Negative) 05/02/25 18:00 Acetaminophen < 5.0 ug/mL (10-30) L 05/02/25 18:52 Ur Barbiturates Screen Negative ng/mL (Negative) 05/02/25 18:00 Ur Phencyclidine Scrn Negative ng/mL (Negative) 05/02/25 18:00 Ur Amphetamines Screen Positive ng/mL (Negative) H 05/02/25 18:00 U Benzodiazepines Scrn Negative ng/mL (Negative) 05/02/25 18:00 Urine Cocaine Screen Negative ng/mL (Negative) 05/02/25 18:00 U Marijuana (THC) Screen Positive ng/mL (Negative) H 05/02/25 18:00 Ethyl Alcohol < 10 mg/dL (0-10) 05/02/25 18:52 All radiology interpretation(s) finalized by discharge Discharge Plan Discharge Patient Disposition: Xfer Psychiatric Hosp Clinical Impression: Depression, Suicidal ideation Condition: Stable Referrals: Anny Gardner FNP [Primary Care Provider, Family Practice] Print Language: Tajik Coding Level of Care Code ED 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
[2025-05-02 18:58] LABS: Glucose Urine UA Negative (Normal); Nitrate Urine Negative (Negative); Specific Gravity, Urine 1.021 (1.005-1.030)
--- NOTE | 2025-05-02 18:59 | ECG_ITS ---
[facility] Test Date: 2025-05-02 Pat Name: Gerardo Jamil Department: Room: Gender: Male Neurology Teacher: : 1960 Requested By: Rosanna Chaudhary Order Number: [id number] Alvarado MD: Cliff Cook M.D. Measurements Intervals [place] Rate: 56 P: 58 VA: 178 QRS: 41 QRSD: 95 T: 54 QT: 418 QTc: 405 Interpretive Statements SINUS BRADYCARDIA Compared to ECG 04/09/2025 13:48:41 Sinus rhythm no longer present Electronically Signed On 05-05-2025 14:14:52 CDT by Cliff Cook M.D. [email or web address]
[2025-05-02 19:01] LABS: Add Urine Microscopic? YES
--- NOTE | 2025-05-02 19:02 | XRR_ITS ---
PROCEDURE INFORMATION: Exam: XR Chest Exam date and time: 05/02/2025 7:04 PM Age: 64 years old Clinical indication: Screening exam; Other screening; Additional info: Geriatric psychiatric workup TECHNIQUE: Imaging protocol: Radiologic exam of the chest. Views: 1 view. COMPARISON: CR XR chest 1V portable [id number] 04/09/2025 4:14 PM FINDINGS: Lungs: Lungs are hyperinflated. Clear parenchyma. Pleural spaces: No pleural effusion. No pneumothorax. Heart/Mediastinum: Cardiac silhouette is normal in size for technique. Bones/joints: Age appropriate. XR/XR chest 1V portable [id number] IMPRESSION: Hyperinflated but clear lungs. No other acute cardiopulmonary abnormality.
[2025-05-02 19:06] LABS: PCP Screen Urine Negative (Negative)
[2025-05-02 19:08] LABS: Hematocrit 36.1 % (37-53); Hemoglobin 11.30 g/dL (11.27-16.99); Mean Corpuscular HGB Conc 31.3 g/dL (30-55); Mean Corpuscular Hemoglobin 20.2 pg (27-33); Mean Corpuscular Volume 64.5 fl (82-101); Nucleated Red Blood Cells % 0 %; Platelet Count 338 10^3/cmm (157-399); Red Blood Count 5.60 10^6/uL (3.85-5.65); White Blood Count 7.61 10^3/uL (3.29-11.43)
[2025-05-02 20:03] LABS: Alanine Aminotransferase 16 U/L (0-41); Albumin Level 3.9 g/dL (3.5-5.2); Alkaline Phosphatase 93 U/L (40-130); Anion Gap 17.4 (5-19); Aspartate Amino Transferase 21 U/L (0-40); Blood Urea Nitrogen 14 mg/dL (8-23); Calcium 9.1 mg/dL (8.5-10.5); Carbon Dioxide 22 mmol/L (22-29); Chloride 103 mmol/L (98-107); Globulin 3.3 g/dL (1.3-4.6); Glucose 125 mg/dL (65-115); Osmolality Calculated 290 mOsm/kg (285-295); Potassium 3.4 mmol/L (3.5-5.1); Sodium 139 mmol/L (136-145); Thyroid Stimulating Hormone 2.07 uIU/mL (0.27-4.20); Total Protein 7.2 g/dL (6.6-8.7)
[2025-05-02 20:05] LABS: Acetaminophen < 5.0 ug/mL (10-30); Alcohol Level < 10 mg/dL (0-10); Salicylate < 0.3 mg/dL (3-10)
[2025-05-02 21:35] LABS: SARS-CoV-2 PCR Negative (Negative)
[2025-05-02 21:36] LABS: Respiratory Syncytial Virus Ce Negative (Negative)
[2025-05-02 22:58] VITALS: BP 120/78; PULSE 65; O2SAT 99
[2025-05-03] VITALS: BP 136/92; PULSE 65; RESP 16; O2SAT 99
[2025-05-03 06:00] VITALS: BP 117/79; PULSE 60; O2SAT 95
--- NOTE | 2025-05-03 08:13 | PC.NURSE ---
PROVIDED PT WITH COFFEE PER REQUEST
--- NOTE | 2025-05-03 08:39 | PC.NURSE ---
pt provided with breakfast tray, discussed pt's concern with home medications; pt denies any further needs at this time.
--- NOTE | 2025-05-03 08:51 | PC.NURSE ---
report given to [facility]. pt's belongings, including x4 home medication vials, sent with [facility]. pt states all belongings present at time of transfer.
== END 2025-05-03 08:56 ==
PROVIDERS: Emergency Provider Emergency Medicine; PCP Nurse Practitioner Family
DX: F32.A Depression, unspecified (principal); R45.851 Suicidal ideations; Z11.52 Encounter for screening for COVID-19; Z79.899 Other long term (current) drug therapy; Z88.5 Allergy status to narcotic agent
CPT/HCPCS: 36415; 71045; 80053; 80306; 80307; 81001; 84443; 85025; 87637; 93005; 99285; J9999